=== PATIENT | male | born 1985 | race African-American/Black ===

== ENCOUNTER 2019-01-19 17:30 | Emergency (ER) | payer OTHER ==
[~2019-01-19] VITALS: Ht 195.6 cm; Wt 103.0 kg
[2019-01-19] MEDS ORDERED: KETOROLAC TROMETHAMINE 30 MG/ML VIAL IM ONE (18:00)
[2019-01-19] MEDS ORDERED: LIDOCAINE 1% 10 ML VIAL INJ ONE ×2 (18:30→19:45)
[2019-01-19] MEDS ORDERED: POVIDONE-IODINE 10% 15 ML SOLUTION UD ONE (18:33)
[2019-01-19] MEDS ORDERED: CeFAZolin 2 GM/DEXTROSE 50 ML IV ONE (19:30)
[2019-01-19] MEDS ORDERED: METHYLENE BLUE 0.5% 10 ML AMPULE IVP ONE (19:45)
[2019-01-19] MEDS ORDERED: GENTAMICIN SULFATE IV ONE (19:45)
[2019-01-19] MEDS ORDERED: DEXTROSE 5% IV ONE (19:45)
[2019-01-19] MEDS ORDERED: WATER IV ONE (19:45)
[2019-01-19] MEDS ORDERED: MORPHINE SULFATE 4 MG/ML SYRINGE IVP ONE (21:30)
[2019-01-19 22:20] VITALS: BP 124/83
== END 2019-01-19 22:20 | disposition home or self-care (01) ==
LOC: EMS 17:31
DX: S81.811A Laceration without foreign body, right lower leg, initial encounter (principal); V03.99XA Pedestrian with other conveyance injured in collision with car, pick-up truck or van, unspecified whether traffic or nontraffic accident, initial encounter; Y93.89 Activity, other specified; Y92.488 Other paved roadways as the place of occurrence of the external cause; Y99.8 Other external cause status
CPT/HCPCS: 12032; 20610; 73564; 73610; 73630; 96365; 96367; 96372; 96375; 99284; J0690; J1580; J1885; J2270; J3490; J7060